=== PATIENT | male | born 1970 | race Caucasian/White ===

== ENCOUNTER 2017-12-20 02:02 | Inpatient (IN) | payer OTHER ==
[~2017-12-20] VITALS: Ht 185.4 cm; Wt 117.9 kg
[~2017-12-20 02:02] MED LIST: TESTOSTERO200 MG/1 M IM; VIBERZI100 MG
--- NOTE | 2017-12-20 12:03 | Admission Core Measures ---
Acute Coronary Syndrome (CM) ACS Core Measures Acute Coronary Syndrome Diagnosis No Congestive Heart Failure (NEW) CHF Core Measures Congestive Heart Failure Diagnosis No Cerebrovascular Accident (NEW) CVA Core Measures CVA/TIA Diagnosis No Venous Thromboembolism VTE Core Candace (View Protocol) VTE Risk Factors Surgery No Mechanical VTE Prophylaxis d/t N/A MechProphylax Ordered No VTE Pharm Prophylaxis d/t NA PharmProphylax ordered Problem List As ranked by this Provider includes Assessment & Plan 1. Diverticulitis large intestine w/o perforation or abscess w/o bleeding HOME MEDS Home Med List Testosterone Cypionate 200 MG/ML VIAL 1 ML IM Q2W SUPPLEMENT (Reported)
--- NOTE | 2017-12-20 12:35 | Operative Report ---
Operative/Inv Procedure Report Surgery Date: 12/20/17 Name of Procedure: 1. Robotic low anterior resection 2. Rigid sigmoidoscopy for evaluation of anastomotic integrity Pre-Operative Diagnosis: Recurrent diverticulitis large bowel Post-Operative Diagnosis: Recurrent diverticulitis large bowel Estimated Blood Loss: less than 50ml Surgeon/Tariff Compiling Clerk: Elliott Mariano Jr., DO Anesthesia: general endotracheal tube, block Monitors: Per routine Drains: None Specimens: Rectosigmoid Complications: None Condition: Good Operative Indication: This is a 47-year-old gentleman with well-documented sigmoid diverticular disease. He's had multiple CAT scans demonstrate active disease. He's a colonoscopy which has demonstrated the presence of diverticular disease and exclude other major colonic pathology. He's been treated numerous times presents today for elective resection Operative/Procedure Note Note: On the evening before his surgery the patient did a bowel prep at home with oral antibiotics and oral laxatives. 3 hours prior to his operation he drink 12 ounces of apple juice. He presented to [facility] where he received premedication per the ERAS protocol. He was taken to the operating room and placed in the supine position on the operating table. He underwent induction of general anesthesia and placement of endotracheal tube and Orlando catheter. He received bilateral tap blocks by the anesthesia department. He was converted to the lithotomy position in [facility]. The abdomen was prepped and draped in usual fashion. We can access to the abdominal cavity using a Veress needle technique. Needle was inserted in the midclavicular line just subcostal on the left. The abdomen was insufflated to 50 mmHg and then the robotic ports were placed. The robotic ports were placed on a line drawn between the xiphoid process in the right lower quadrant. Nunber1,2 and 3 ports were 8 mm, #4 port was a 12 mm. The #3 port was placed blindly and the others were all placed under direct visualization of the left. A right lower quadrant fullness and millimeter aerosol port was also placed. Upper scopic expiration of the abdominal cavity was performed. The patient clearly had diverticulitis involving the mid and distal sigmoid colon. The patient was placed in Trendelenburg right side down and then the robot was docked. I took down the abnormal adhesions between the sigmoid colon and the lateral wall of the abdomen. The colon was then grasped and elevated anteriorly and then I incised peritoneum over the sacral promontory. I entered the avascular presacral area. I developed the space the medial to lateral approach until I identified the ureter on the left. I then continued to follow this space down to the midportion of the rectum. I divided a small part of the lateral stalks to the right and then to the left. At this point I took down the white line of Toldt for the entire length of the sigmoid and most of the length of the descending colon. I freed the colon from its retroperitoneal attachments to Gerota's fascia. Next the vasculature was isolated. I skeletonized the inferior mesenteric artery and vein distal to the takeoff of the left colic. After skeletonizing these vessels were individually ligated and divided with the robotic vessel sealer. We had complete hemostasis on the vascular pedicle. Next I chose my distal site of transection. I make her to be on the rectum proper slightly below the peritoneal reflection mesentery was divided partially with electrocautery and partially with the robotic vessel sealer. Once the rectal wall was completely exposed the WIL stapler was used to divide the bowel. This was a robotic blue 45 mm stapler. Next the transected end of the colon was grasped with a locking clamp and the robot was undocked. A 5 cm Pfannenstiel incision was used for extraction. A wound protector was placed through the incision and the bowel was pulled through the incision. I chose my proximal site of transection, we're the mesentery here partly with electrocautery but larger pedicles of the mesentery were ligated and divided with 2-0 Vicryl sutures. I sharply divided the bowel and removed the specimen from the field. The open ends of the bowel grasped with Allis clamps and then a handsewn Kitzmiller was performed with a 2-0 Prolene. Next a 28 EEA stapler was chosen for the anastomosis. The interval of the stapler was placed into the lumen of the bowel and the pursestring was tied snugly around the PEG of the internal. The bowel was reduced back into the abdominal cavity. I closed the fascia of the appendiceal incision. The peritoneum was closed running locking 2 -0 Vicryl suture. And the fascia was closed with 0 PDS. The abdomen is reinsufflated. Once again the patient was placed in Trendelenburg and the bowels that the pelvis. The EEA sizers and then the EEA stapler passed transanally. Once the stapler was in the appropriate position the spike was advanced. The spike emerged through the rectal stump slightly posterior and slightly to the left of midline. The 2 ends of the stapling device were mated. The stapler was closed completely and allowed to settle for 30 seconds. The stapler was armed fired opened and retrieved. I had 2 excellent donuts on the stapling device. Next the pelvis was filled with sterile saline and then the bowel was gently occluded proximal to the anastomosis. I performed a rigid sigmoidoscopy I could see the anastomosis which appeared intact and nonbleeding. There was no air bubbling from the anastomosis so the flow was aspirated and once again the pneumoperitoneum was let down. The ports were removed. The upper scopic ports were closed with subcuticular 4-0 Monocryl to the skin glue. The Pfannenstiel incision was copiously irrigated with sterile saline and then closed with skin estefania. A dressing was placed over the Pfannenstiel incision. The patient was converted back to supine. The patient was extubated in operating room, he tolerated the procedure well, and he was taken the recovery area in good condition. At the end this operational needle sponges and Schmidts were accounted for.
--- NOTE | 2017-12-20 13:12 | Surg Short-stay <48hrs Dis Sum ---
Visit Information Visit Dates Admission Date: 12/20/17 Discharge Date: 12/22/17 Surgical Short Stay DC Summary Admission Diagnosis: Recurrent diverticulitis large bowel Final Diagnosis: Same s/p robotic low anterior resection, rigid sigmoidoscopy for evaluation of anastomotic integrity Procedure(s): 1. Robotic low anterior resection 2. Rigid sigmoidoscopy for evaluation of anastomotic integrity Summary/Significant Findings: Electively scheduled robotic robotic low anterior resection, rigid sigmoidoscopy on 12/20/[address] Mariano for recurrent diverticulittis. ERAS protocol initiated preop and continued postop. Started on clears and advanced as tolerated with return of bowel function. At the time of hospital discharge, the vital signs were stable, neurovascular status was intact and pain was controlled with the use of oral pain medications. Condition at Discharge: Stable Discharge Disposition: home or self care Discharge instructions provided to patient/family: Yes Post discharge follow-up plan: Follow up in 1-[address] Mariano
[2017-12-20 15:07] VITALS: BP 138/64
--- NOTE | 2017-12-20 17:48 | PN- General Surgery ---
Subjective Subjective: No acute post operative events. Pt states he has no pain, feels residual numbness from anesthetic block. Denies nausea and vomitting, has tolerated clear liquid po intake. Denies chest pain, shortness of breath and difficulty breathing. Denies bilateral upper and lower extremity discomfort. Has copeland catheter in place. Has yet to ambulate. Objective Vital Signs and I&Os Vital Signs Date Time Temp Pulse Resp B/P B/P Pulse O2 O2 Flow FiO2 Mean Ox Delivery Rate 12/20 1507 93 Nasal 3.0L Cannula 12/20 1507 97.8 92 18 138/64 93 Nasal 3.0L Cannula 12/20 1507 93 Nasal 3.0L Cannula Intake & Output 12/20 1600 12/20 0800 12/20 0000 12/19 1600 12/19 0800 12/19 0000 Intake Total Output Total Balance Patient 260 lb Weight Weight Reported by Patient Measurement Method Physical Exam: General: Alert and oriented x3, no acute distress Cards: RRR, s1s2 Pulm: CTA bialterally, non-labored respiratory effort Abd: Softly distended, +bs, no flatus, skin incisions well approximated, sealed with dermabond. Some residual blood on most inferior dressing, dry. Extremities: Moves all extremities, disteal sensation intact. Skin warm and well perfused. DP pulses palpable. Calves soft and non-tender bilaterally. Assessment/Plan Assessment/Plan This is a 47 year old, pod 0, s/p low anterior resection, davinci -IV fluids overnight, clear liquid diet -OOB -Hep sub q, alps for dvt ppx -entereg -po acetaminophen, oxycodone prn will discuss with DR. patel gi ppx and post op abx Core Measures Venous Thromboembolism VTE Risk Factors Surgery No Mechanical VTE Prophylaxis d/t N/A MechProphylax Ordered No VTE Pharm Prophylaxis d/t NA PharmProphylax ordered
[2017-12-20 20:00] VITALS: BP 138/62
[2017-12-20 22:04] VITALS: BP 128/80
[2017-12-21 04:00] VITALS: BP 120/72
[2017-12-21 07:04] VITALS: BP 130/83
--- NOTE | 2017-12-21 07:42 | PN- General Surgery ---
Surgical Brief Attending Note Brief Attending Note: Patient complaining of abdominal cramps/abdominal wall spasms Afebrile vital signs stable Lab still pending Abdominal exam appropriate tenderness at incisions nondistended Plan: DC Orlando catheter Can add Valium for spasms. Ambulate Patient can advance to full this if not nauseous this morning
[2017-12-21 08:23] LABS: ABSOLUTE BASOPHIL COUNT 0 /CUMM (0.0-0.2); ABSOLUTE EOSINOPHIL COUNT 0 /CUMM (0.0-0.7); ABSOLUTE GRANULOCYTE CT 9.4 /CUMM (1.4-6.5); ABSOLUTE LYMPH COUNT 1.6 /CUMM (1.2-3.4); ABSOLUTE MONOCYTE COUNT 0.6 /CUMM (0.10-0.60); BASOPHIL % 0.4 % (0.0-2.0); EOSINOPHIL % 0.3 % (0-5); GRANULOCYTE % 80.4 % (42.2-75.2); MEAN CORPUSCULAR HGB 26.5 PG (27.0-31.0); MEAN CORPUSCULAR HGB CONC 33.6 G/DL (33.0-37.0); MEAN CORPUSCULAR VOLUME 78.8 FL (80.0-94.0); MEAN PLATELET VOLUME 10.1 FL (7.4-10.4); RBC DISTRIBUTION WIDTH 14.3 % (11.5-14.5); RED BLOOD CELL CT 6.21 /CUMM (4.70-6.10)
[2017-12-21 09:59] LABS: WHITE BLOOD CELL COUNT 11.7 /CUMM (4.8-10.8)
[2017-12-21 10:00] LABS: PLATELET COUNT 127 /CUMM (130-400)
[2017-12-21 15:14] VITALS: BP 118/78
--- NOTE | 2017-12-21 16:08 | Patient Discharge Instructions ---
Discharge Instructions General Discharge Information You were seen/treated for: Recurrent diverticulitis large bowel You had these procedures: On 12/20/17, 1. Robotic low anterior resection 2. Rigid sigmoidoscopy for evaluation of anastomotic integrity Watch for these problems: Increased pain, distenstion, fever> 101.3, redness, swelling or drainage from your incision Call Surgeon to remove: Drake, Stitches No bath, but you may shower: Yes Other wound care: Keep incisions clean and dry, no ointments Change dressing daily as needed Special Instructions: Call Dr. Mariano's office to schedule a follow up appoinment and staple removal in 10-14 days or sooner with concerns. No heavy lifting or strenous activity x 4 weeks Diet Continue normal diet: No Recommended Diet: Low Residue Activity Full Activity/No Limits: No Activity Self Limited: Yes Pounds, do NOT lift more than: 10 (x 4 weeks) Acute Coronary Syndrome Inclusion Criteria At DC or during hospital stay patient has or had the following: ACS DIAGNOSIS No Discharge Core Measures Meds if any: Prescribed or Continued at Discharge Meds if any: NOT Prescribed or Continued at Discharge Congestive Heart Failure Inclusion Criteria At DC or during hospital stay patient has or had the following: CHF DIAGNOSIS No Discharge Core Measures Meds if any: Prescribed or Continued at Discharge Meds if any: NOT Prescribed or Continued at Discharge Cerebrovascular accident Inclusion Criteria At DC or during hospital stay patient has or had the following: CVA/TIA Diagnosis No Discharge Core Measures Meds if any: Prescribed or Continued at Discharge Meds if any: NOT Prescribed or Continued at Discharge Venous thromboembolism Inclusion Criteria VTE Diagnosis No VTE Type NONE VTE Confirmed by (Test) NONE Discharge Core Measures - Per Current guidelines, there needs to be overlap - treatment for the first 5 days of Warfarin therapy. - If discharged on Warfarin prior to 5 days of - overlap therapy, the patient will need to be - assessed for post discharge needs including - *Post discharge parental anticoagulation - *Warfarin and/or parental anticoagulation education - *Follow up date to check INR post discharge At least 5 days overlap therapy as Inpatient No Meds if any: Prescribed or Continued at Discharge Note: Overlap Therapy is Warfarin and Anticoagulant Meds if any: NOT Prescribed or Continued at Discharge
[2017-12-21 23:43] VITALS: BP 107/61
[2017-12-22 07:29] VITALS: BP 119/65
--- NOTE | 2017-12-22 08:18 | PN- General Surgery ---
See Addendum Subjective Subjective: Patient seen and evaluated. No acute events overngiht. Reports he is doing very well and is requesting for his diet to advance and to go home. Pain is better than yesterday. Reports passing flatus and some loose stools. Tolerating his fulls diet without n/v. voiding without problems. Otherwise, patient doing well. Objective Vital Signs and I&Os Vital Signs Date Time Temp Pulse Resp B/P B/P Pulse O2 O2 Flow FiO2 Mean Ox Delivery Rate 12/22 0000 CPAP 12/21 2343 98.1 81 20 107/61 95 CPAP 12/21 2200 95 Room Air 12/21 1514 98.1 87 18 118/78 96 12/21 1400 95 Room Air Intake & Output 12/22 1600 12/22 0800 12/22 0000 12/21 1600 12/21 0800 12/21 0000 Intake Total 1220 400 400 Output Total 123 049 2075 3800 Balance -350 370 -750 -3400 Intake, IV 20 400 400 Intake, Oral 1200 Number 2 Bowel Movements Output, Urine 182 063 5490 3800 Physical Exam: General: middle age male laying supine in bed, nad Cards: RRR, s1s2 Pulm: CTA bialterally, non-labored respiratory effort Abd: NT/ND, +bs, +flatus, skin incisions well approximated, sealed with dermabond. no guarding/rigidity Extremities: Moves all extremities, disteal sensation intact. Skin warm and well perfused. DP pulses palpable. Calves soft and non-tender bilaterally. Current Medications: Current Medications Sig/Esvin Start time Last Medication Dose Route Stop Time Status Admin Acetaminophen 1,000 MG TID 12/20 1399 AC 12/21 PO 2031 Alvimopan 12 MG BID 12/20 2100 AC 12/21 PO 12/27 0901 2032 Calcium Carbonate 1,000 MG Q8P PRN 12/20 2199 AC 12/20 PO 2200 Dextrose/Sodium 1,000 ML .Q20H 12/20 1430 DC 12/20 Chloride IV 1714 Diazepam 5 MG TID PRN 12/21 0815 AC 12/21 PO 1530 Famotidine 20 MG BID 12/20 2199 AC 12/21 PO 2031 Gabapentin 300 MG Q8 12/20 1400 AC 12/22 PO 0523 Heparin Sodium 5,000 UNIT Q8 04/20 1400 AC 12/22 (Porcine) SC 0524 Ondansetron HCl 4 MG Q6P PRN 12/20 1430 AC IV Oxycodone HCl 5 MG Q4-6 PRN PRN 12/20 143 AC 12/20 PO 2143 Oxycodone HCl 10 MG Q4-6 PRN PRN 12/20 143 AC 12/21 PO 2139 Results Last 48 Hours of Labs: Laboratory Tests 12/22 12/21 0718 0725 Chemistry Sodium (137 - 145 mmol/L) 138 Potassium (3.5 - 5.1 mmol/L) 3.6 Chloride (98 - 107 mmol/L) 100 Carbon Dioxide (22 - 30 mmol/L) 29 Anion Gap (5 - 16) 9 BUN (9 - 20 mg/dL) 9 Creatinine (0.7 - 1.2 mg/dL) 1.1 Estimated GFR (>60 ml/min) > 60 BUN/Creatinine Ratio (7 - 25 %) 8.2 Hematology CBC w Diff Pending NO MAN DIFF REQ WBC (4.8 - 10.8 /CUMM) Pending 11.7 H RBC (4.70 - 6.10 /CUMM) Pending 6.21 H Hgb (14.0 - 18.0 G/DL) Pending 16.5 Hct (42 - 52 %) Pending 49.0 MCV (80.0 - 94.0 FL) Pending 78.8 L MCH (27.0 - 31.0 PG) Pending 26.5 L MCHC (33.0 - 37.0 G/DL) Pending 33.6 RDW (11.5 - 14.5 %) Pending 14.3 Plt Count (130 - 400 /CUMM) Pending 127 L MPV (7.4 - 10.4 FL) Pending 10.1 Gran % (42.2 - 75.2 %) 80.4 H Lymphocytes % (20.5 - 51.1 %) 13.4 L Monocytes % (1.7 - 9.3 %) 5.5 Eosinophils % (0 - 5 %) 0.3 Basophils % (0.0 - 2.0 %) 0.4 Absolute Granulocytes (1.4 - 6.5 /CUMM) 9.4 H Absolute Lymphocytes (1.2 - 3.4 /CUMM) 1.6 Absolute Monocytes (0.10 - 0.60 /CUMM) 0.6 Absolute Eosinophils (0.0 - 0.7 /CUMM) 0 Absolute Basophils (0.0 - 0.2 /CUMM) 0 Assessment/Plan Assessment/Plan This is a 47 y/o M w/ PMHx of diverticulitis, IBS, low testosterone, and polycythemia vera, who is now POD#2 s/p DaVincin assisted laparoscopic low anterior resection *Will discuss patient and plan with Dr. Mariano GI: #POD2 Robot LAR - On fulls -> will advance to Low residue diet - Zofran PRN - Famotadine - Can likely dc entereg - has had 2 documented loose stools CV: - Vitals stable - Monitor vitals per protocol Pulm: - Continuie agressive pulmonary toilet Neuro: - Continue current pain regimen; - not in pain --- Oxycodone 5 mg/10 mg PO PRN moderate/severe pain --- Tylenol 1000 q8hr ATC --- Valium 5 mg PO TID PRN abdominal spasms --- Gabapentin 300 mg q8hr Renal/: - Continue flomax and finesteride - Good UOP ID: - Not on abx - WBC 11.7 yesterday - Monitor for fevers Heme: - H&H stable - F/U morning CBC - Continue sc heparin Endo: - No active issues Ortho: - Encourage ambulation Dispo: - Anticipate discharge today Core Measures Venous Thromboembolism VTE Risk Factors Surgery No Mechanical VTE Prophylaxis d/t N/A MechProphylax Ordered No VTE Pharm Prophylaxis d/t NA PharmProphylax ordered
[2017-12-22 08:35] LABS: ABSOLUTE BASOPHIL COUNT 0 /CUMM (0.0-0.2); ABSOLUTE EOSINOPHIL COUNT 0.1 /CUMM (0.0-0.7); ABSOLUTE GRANULOCYTE CT 4.3 /CUMM (1.4-6.5); ABSOLUTE LYMPH COUNT 1.7 /CUMM (1.2-3.4); ABSOLUTE MONOCYTE COUNT 0.5 /CUMM (0.10-0.60); BASOPHIL % 0.3 % (0.0-2.0); EOSINOPHIL % 1.8 % (0-5); GRANULOCYTE % 64.4 % (42.2-75.2); HEMATOCRIT 47.6 % (42-52); MEAN CORPUSCULAR HGB 26.3 PG (27.0-31.0); MEAN CORPUSCULAR HGB CONC 33.5 G/DL (33.0-37.0); MEAN CORPUSCULAR VOLUME 78.4 FL (80.0-94.0); PLATELET COUNT 142 /CUMM (130-400); RBC DISTRIBUTION WIDTH 14.4 % (11.5-14.5); RED BLOOD CELL CT 6.07 /CUMM (4.70-6.10); WHITE BLOOD CELL COUNT 6.6 /CUMM (4.8-10.8)
[2017-12-22] MEDS ORDERED: DIAZEPAM5 M1 PO (09:09)
[2017-12-22] MEDS ORDERED: OXYCODONE HCL5 M1 PO (09:09)
== END 2017-12-22 11:48 | DRG 331 ==
LOC: SDA 02:02 → ENRESERV 13:08 → ENTRNSPT 13:54 → EDTRNSPTSTS 13:56 → EDTRNSPT 13:56 → 2NB 14:06 → CMPTRNSPT 14:06 → ENPENDDIS 12-22 09:26 → 2NB 12-22 11:48
PROVIDERS: Physician Assistant Surgical
PROC: 0DTN4ZZ Resection of Sigmoid Colon, Percutaneous Endoscopic Approach (ICD-10-PCS; principal; 2017-12-20)
PROC: 8E0W4CZ Robotic Assisted Procedure of Trunk Region, Percutaneous Endoscopic Approach (ICD-10-PCS; principal; 2017-12-20)
PROC: 0DJD8ZZ Inspection of Lower Intestinal Tract, Via Natural or Artificial Opening Endoscopic (ICD-10-PCS; principal; 2017-12-20)
PROC: 3E0T3BZ Introduction of Anesthetic Agent into Peripheral Nerves and Plexi, Percutaneous Approach (ICD-10-PCS; 2017-12-20)
DX: K57.32 Diverticulitis of large intestine without perforation or abscess without bleeding (principal); G47.33 Obstructive sleep apnea (adult) (pediatric); N40.0 Benign prostatic hyperplasia without lower urinary tract symptoms
CPT/HCPCS: 2NSBP; 36592; 82436; 87086; C9290; C9399; J0131; J1644; J7042